=== PATIENT | male | born 1995 | race Two or more races ===

== ENCOUNTER 2023-09-27 20:29 | Emergency (ER) | payer MEDICAID ==
[~2023-09-27] VITALS: Ht 170.2 cm; Wt 61.4 kg
[2023-09-27 22:00] VITALS: TEMP 98.3
[2023-09-27 22:05] LABS: BASOPHILS % (AUTO) 0.5 % (0.0-2.0); EOSINOPHILS % (AUTO) 1.5 % (1.0-6.0); HEMATOCRIT 39.5 % (41-53); HEMOGLOBIN 13.8 g/dL (13.5-17.5); LYMPHOCYTES # (AUTO) 1.8 K/uL (1.0-4.8); LYMPHOCYTES % (AUTO) 27.6 % (22.0-44.0); MEAN CORPUSCULAR HEMOGLOBIN 32.5 pg (26.0-34.0); MEAN CORPUSCULAR HGB CONC 34.8 G/dL (31.0-37.0); MEAN CORPUSCULAR VOLUME 93 fL (80-100); MONOCYTES # (AUTO) 0.5 K/uL (0.1-1.0); MONOCYTES % (AUTO) 7.2 % (2.0-9.0); NEUTROPHILS # (AUTO) 4.1 K/uL (1.8-7.7); NEUTROPHILS % (AUTO) 63.2 % (40.0-70.0); PLATELET COUNT (AUTO) 214 K/uL (150-450); RED BLOOD CELL COUNT(AUTO) 4.23 MIL/uL (4.50-5.90); RED CELL DISTRIBUTION WIDTH 13.6 % (11.5-14.5); WHITE BLOOD COUNT (AUTO) 6.4 K/uL (4.5-11.0)
[2023-09-27] MEDS ORDERED: PERTUSS(ACELL),DIPH,TET VAC/PF 0.5 ML SYRINGE IM. ONE (22:15)
[2023-09-27 22:16] LABS: ANION GAP 12 mmol/L (8-16); CALCIUM, TOTAL 8.9 mg/dL (8.8-10.5); CARBON DIOXIDE 24 mmol/L (22-29); CHLORIDE 103 mmol/L (98-107); CREATININE 1.22 mg/dL (0.60-1.30); GLOMERULAR FILTR. RATE CALC > 60 mL/min (>60); GLUCOSE,RANDOM 109 mg/dL (70-110); POTASSIUM 3.3 mmol/L (3.5-5.1); SODIUM SERUM 139 mmol/L (136-145); UREA NITROGEN, BLOOD 17 mg/dL (7-18)
[2023-09-27 22:22] LABS: ALANINE AMINOTRANSFERASE 23 U/L (12-78); ALKALINE PHOSPHATASE 78 U/L (46-116); ASPARTATE AMINOTRANSFERASE 21 U/L (15-37); BILIRUBIN,TOTAL 0.4 mg/dL (0.1-1.0)
[2023-09-27] MEDS ORDERED: IBUP-1492 PO (22:23)
[2023-09-27] MEDS ORDERED: BACTDSB PO (22:23)
[2023-09-27] MEDS ORDERED: CEPH-558 PO (22:23)
[2023-09-27 22:25] LABS: LACTIC ACID 0.9 mmol/L (0.4-2.0)
[2023-09-27] MEDS ORDERED: LIDOCAINE 1% 10 ML VIAL SQ ONE (22:30)
[2023-09-27] MEDS ORDERED: CefTRIAXone SODIUM 1 GM/VIAL IM ONE (22:30)
[2023-09-27] MEDS ORDERED: POVIDONE-IODINE 10% 120 ML SOLUTION TP ONE (22:30)
[2023-09-27] MEDS ORDERED: LIDOCAINE/PF 1% 2 ML VIAL IM ONE (22:30)
[2023-09-28 01:30] VITALS: BP 124/79; PULSE 71; RESP 20
== END 2023-09-28 00:01 | disposition home or self-care (01) ==
LOC: EMS 20:31 → EDBD 20:31 → EMS 09-28 00:01
DX: S81.012A Laceration without foreign body, left knee, initial encounter (principal); M25.062 Hemarthrosis, left knee; F17.210 Nicotine dependence, cigarettes, uncomplicated; W26.0XXA Contact with knife, initial encounter; Y93.89 Activity, other specified; Y92.89 Other specified places as the place of occurrence of the external cause; Y99.8 Other external cause status
CPT/HCPCS: 99285; 73700; 80053; 83605; 85025; 87040; 36415; 90715; 90471; 96372; J0696; J3490 ×2

== ENCOUNTER 2023-09-28 22:51 | Emergency (ER) | payer MEDICAID ==
[~2023-09-28 22:51] MED LIST: BACTDSB PO; CEPH-558 PO; IBUP-1492 PO
[2023-09-28 23:30] VITALS: BP 135/75; PULSE 89; RESP 16; TEMP 98.3
[2023-09-28] MEDS ORDERED: IBUPROFEN 600 MG TABLET PO ONE (23:30)
== END 2023-09-29 03:41 | disposition home or self-care (01) ==
LOC: EMS 22:52
DX: M25.062 Hemarthrosis, left knee (principal); F17.210 Nicotine dependence, cigarettes, uncomplicated
CPT/HCPCS: 99282; Z7502; Z7610